=== PATIENT | female | born 1955 | race Two or more races ===

== ENCOUNTER 2024-03-25 19:01 | Emergency (ER) | payer OTHER ==
[~2024-03-25] VITALS: Ht 172.7 cm; Wt 56.8 kg
[2024-03-25 20:09] LABS: Basophils # (auto) 0.1 10 ^3/uL (0-0.2); Basophils % (auto) 0.7 % (0.0-2.0); Eosinophils # (auto) 0 10 ^3/uL (0-0.8); Eosinophils % (auto) 0.2 % (0.0-7.0); Hematocrit 45.5 % (36.0-46.0); Hemoglobin 14.9 g/dL (12.2-16.2); Lymphocytes # (auto) 1.3 10 ^3/uL (0.4-5.4); Mean Corpuscular Hemoglobin 28.4 pg (28.0-32.0); Mean Corpuscular Hgb Conc. 32.8 g/dL (32.0-36.0); Mean Corpuscular Volume 86.8 fL (80.0-100.0); Monocytes # (auto) 0.3 10 ^3/uL (0-1.3); Neutrophils # (auto) 9.4 10 ^3/uL (1.6-8.6); Neutrophils % (auto) 84.1 % (37.0-80.0); Nucleated Red Blood Cells % 0.1 %; Platelet Count (auto) 322 10^3/uL (140-450); Red Blood Cells 5.24 10^6/uL (4.0-5.20); Red Cell Distribution Width 14.7 % (11.8-14.3); White Blood Cell 11.2 10^3/uL (4.4-10.8)
[2024-03-25 20:09] LABS: Urine Bacteria None Seen /hpf (None Seen)
[2024-03-25 20:24] LABS: Urine Blood Negative /uL (Negative); Urine Clarity Clear (Clear); Urine Color Light-Yellow (Yellow); Urine Mucus FEW (None Seen); Urine Protein, UAD Negative (Negative); Urine Specific Gravity 1.016 (1.001-1.035); Urine Urobilinogen Normal (Negative); Urine WBC 19 /hpf (0 - 5)
[2024-03-25 20:34] LABS: Alanine Aminotransferase 16 U/L (7-40); Albumin 4.7 g/dL (3.2-4.8); Alkaline Phosphatase 131 U/L (46-116); Anion Gap 9 (5-15); Aspartate Aminotransferase 28 U/L (13-40); BUN/Creatinine Ratio 12.6 (10.0-20.0); Bilirubin, Total 0.5 mg/dL (0.2-1.0); Blood Urea Nitrogen 13 mg/dL (9-23); Calcium 10.2 mg/dL (8.7-10.4); Carbon Dioxide 23 mmol/L (20-31); Chloride 103 mmol/L (98-107); Glucose 146 mg/dL (74-106); Lipase 36 U/L (12-53); Potassium 4.2 mmol/L (3.5-5.1); Sodium 135 mmol/L (136-145); Total Protein 8.3 g/dL (5.7-8.2)
--- NOTE | 2024-03-25 21:09 | DVH ---
Exam: CT CT AB PEL WO CON-NO ORAL OR IV History: abd pain Comparison Study: None TECHNIQUE: Multidetector CT of the abdomen and pelvis was performed from lung bases to pubic symphysi s. Imaging was performed without IV contrast. Axial, coronal, and sagittal multiplanar reformats were obtained from the axial data set by the technologist. RADIATION DOSE: DLP 352.32 mGy.cm; CTDI vol 7.22 mGy. Findings: Limited evaluation given noncontrast technique. Lungs: Numerous scattered subcentimeter peripheral nodular consolidations. Heart: The visualized heart is unremarkable. No cardiomegaly or pericardial effusion. Moderate ryan ry atherosclerosis. Liver: Subcentimeter hypodense hepatic lesions which are too small to characterize. Gallbladder: Unremarkable. Spleen: Unremarkable Pancreas: Unremarkable Adrenals: Unremarkable Kidneys: Unremarkable GI tract: Postsurgical changes of the cecum. Foci of air in the non dependent portion of the small shad wel in the lower pelvis. Dilated loops of small bowel measuring up to 3.9 cm in diameter. : Unremarkable. Vasculature: Mild aortoiliac atherosclerosis. Lymphadenopathy: Absent Peritoneum: Trace pelvic ascites. Musculoskeletal: Moderate to severe multilevel degenerative changes of the thoracolumbar spine. Grade 1/2 anterolisthesis of L5 on S1 with severe degenerative disc disease. Bilateral total hip arthropla sties with associated beam hardening artifacts limit evaluation of the pelvis. Soft tissues: Unremarkable Impression: 1. Limited evaluation given noncontrast technique. 2. Small bowel obstruction without definite visualization of the transition point. 3. Pneumatosis versus pseudopneumatosis of the small bowel in the pelvis. Cannot exclude ischemic bow el. 4. Trace pelvic ascites, nonspecific. Critical Result: Bowel obstruction Findings discussed with Romain RAWLS, at 03/25/2024 09:07 PM, and acknowledged receipt and understanding of the findings.
[2024-03-25 22:50] VITALS: PULSE 61; RESP 25; O2SAT 95
--- NOTE | 2024-03-25 22:57 | DVH ---
Exam: CT CT AB PEL WITH IV CON ONLY History: abd pain Comparison Study: None available at time of dictation. Technique: Multidetector spiral CT of the abdomen and pelvis was performed from lung bases to pubic s ymphysis. Intravenous contrast was administered during this examination. Portal venous imaging was obtained. Axial, coronal and sagittal multiplanar reformats were performed by the technologist on a separate workstation. Radiation Dose : 1. Abdomen/Pelvis: CTDIvol 10 mGy, DLP 443 mGy*cm. Findings: Lung Bases: No acute or significant lung base finding. Normal heart size. No pleural or pericardial effusion. Liver: The liver is normal in size. No focal lesions. Normal hepatic vascular enhancement. Gallbladder and Biliary Tree: Unremarkable Spleen: Unremarkable Pancreas: The pancreas is normal in appearance without focal lesions or abnormal enhancement. Adrenal Glands: Unremarkable Kidneys: Kidneys demonstrate normal symmetric enhancement without focal lesions, calculi or hydroneph rosis. Multiple bilateral subcentimeter hypodensities. Bladder: Streaking artifact limits evaluation. Bowel: The stomach is grossly normal in appearance. Small bowel measuring up to 4.5 cm. Postsurgical changes of the cecum. Ascites: Absent Lymphadenopathy: No mesenteric, retroperitoneal or periportal lymphadenopathy. Abdominal Wall and Mesentery: Unremarkable. Vasculature: The visualized abdominal aorta is normal in size and caliber. Abdominal and pelvic vess els demonstrate normal enhancement. Pelvic Organs: Streaking artifact limits evaluation. Musculoskeletal: No aggressive focal bony lesions, acute fractures or dislocation. Status post bilate ral total hip arthroplasties. Severe degenerative changes and anterolisthesis involving the lumbar sp ine. Bone fusion with grade 2 anterolisthesis at L5-S1. IMPRESSION: Fluid-filled distended loops of small bowel without a focal transition point measuring up to 4.5 cm c oncerning for high-grade small bowel obstruction. Limited evaluation of the pelvic structures due to streaking artifact from bilateral total hip arthro plasties. Ancillary findings as described above.
[2024-03-25] MEDS: IOHEXOL 300 MG/ML 100ML BOTTLE IJ ONE (23:01)
[2024-03-25] MEDS: MORPHINE SULFATE 4 MG/ML SYR/VIAL IV ONE (23:08)
[2024-03-25] MEDS: ONDANSETRON HCL 4 MG/2 ML VIAL IV ONE (23:09)
--- NOTE | 2024-03-25 23:26 | ED.PDOC ---
GI ASSESSMENT HPI Comments 68-year-old female complaining of abdominal pain which started after eating a salad today. Patient states the pain is 10 10. Says she was not been able hold any food down due to nausea and vomiting. Does report a history of small-bowel obstruction. Patient also reports a history of perforated hernia which she had surgical repair on in January. Patient states her pain does feel similar to the last time she was small-bowel obstruction. 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 History Constitutional: denies: chills, diaphoresis, fatigue, fever, malaise, sweats, weakness, others EENTM: denies: blurred vision, double vision, ear bleeding, ear discharge, ear drainage, ear pain, ear ringing, eye pain, eye redness, hearing loss, mouth pain, mouth swelling, nasal discharge, nose bleeding, nose congestion, nose pain, photophobia, tearing, throat pain, throat swelling, voice changes, others Respiratory: denies: cough, hemoptysis, orthopnea, SOB at rest, shortness of breath, SOB with excertion, stridor, wheezing, others Cardiovascular: denies: chest pain, dizzy spells, diaphoresis, Dyspnea on exertion, edema, irregular heart beat, left arm pain, lightheadedness, palpitations, PND, syncope, others Gastrointestinal: reports: abdominal pain, nausea, vomiting; denies: abdomen distended, blood streaked bowels, constipated, diarrhea, dysphagia, difficulty swallowing, hematemesis, melena, poor appetite, poor fluid intake, rectal bleeding, rectal pain, others Genitourinary: denies: abnormal vagina bleeding, burning, dyspareunia, dysuria, flank pain, frequency, hematuria, incontinence, pain, , vagina discharge, urgency, others Neurological: denies: dizziness, fainting, headache, left sided numbness, left sided weakness, numbness, paresthesia, pre-existing deficit, right sided numbness, right sided weakness, seizure, speech problems, tingling, tremors, weakness, others Musculoskeletal: denies: back pain, gout, joint pain, joint swelling, muscle pain, muscle stiffness, neck pain, others Integumetry: denies: bruises, change in color, change in hair/nails, dryness, laceration, lesions, lumps, rash, wounds, others Allergic/Immunocompromised: denies: Difficulty Healing, Frequent Infections, Hives, Itching, others Hematologic/Lymphatic: denies: anemia, blood clots, easy bleeding, easy bruising, swollen glands, others Physical Exam General Appearance: Moderate Distress, Normal HEENT: Normal ENT Inspection, Pharynx Normal, TMs Normal Neck: Full Range of Motion, Non-Tender, Normal, Normal Inspection Respiratory: Chest Non-Tender, Lungs Clear, No Accessory Muscle Use, No Respiratory Distress, Normal Breath Sounds Cardiovascular: No Edema, No JVD, No Murmur, No Gallop, Normal Peripheral Pulses, Regular Rate/Rhythm Breast Exam: Deferred Gastrointestinal: Diffuse (Diffuse abdominal tenderness), No Organomegaly, Soft Genitalia: Deferred Pelvic: Deferred Rectal: Deferred Extremities: No calf tenderness, Normal capillary refill, Normal inspection, Normal range of motion, Non-tender, No pedal edema Musculoskeletal : Apperance: Normal Neurologic: Alert, 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 Was a procedure done?: No GI differential Dx Differential Diagnosis: Bowel Obstruction, Gastritis/PUD, Gastroenteritis, I nflammatory BD, Ischemic Bowel X-Ray, Labs, Meds, VS Vital Signs Date Time Temp Pulse Resp B/P (MAP) Pulse Ox O2 Delivery O2 Flow Rate FiO2 03/26/24 00:10 93 16 158/99 03/25/24 23:08 58 17 170/81 03/25/24 22:50 98.0 61 25 170/81 (110) 95 98.0 03/25/24 22:50 61 25 95 Nasal Cannula* 2 28 03/25/24 19:27 99.5 68 20 148/92 (110) 96 Lab Test 03/25/24 20:08 03/25/24 19:54 Range/Units Urine Color Light-yellow Yellow Urine Clarity Clear Clear Urine pH 6.0 5.0-9.0 Urine Specific [place] 1.016 1.001-1.035 Urine Protein Negative Negative Urine Ketones 1+ H Negative Urine Blood Negative Negative /uL Urine Nitrite Negative Negative Urine Bilirubin Negative Negative Urine Urobilinogen Normal Negative mg/dL Urine Leukocyte Esterase 2+ Negative /uL Urine RBC 2 0 - 4 /hpf Urine WBC 19 0 - 5 /hpf Urine Squamous Epithelial Cells None seen <5 /hpf Urine Bacteria None seen None Seen /hpf Urine Mucus Few None Seen Urine Glucose Normal Normal mg/dL White Blood Count 11.2 H 4.4-10.8 10^3/uL Red Blood Count 5.24 H 4.0-5.20 10^6/uL Hemoglobin 14.9 12.2-16.2 g/dL Hematocrit 45.5 36.0-46.0 % Mean Corpuscular Volume 86.8 80.0-100.0 fL Mean Corpuscular Hemoglobin 28.4 28.0-32.0 pg Mean Corpuscular Hemoglobin Concent 32.8 32.0-36.0 g/dL Red Cell Distribution Width 14.7 H 11.8-14.3 % Platelet Count 322 140-450 10^3/uL Mean Platelet Volume 7.6 6.9-10.8 fL Neutrophils (%) (Auto) 84.1 H 37.0-80.0 % Lymphocytes (%) (Auto) 12.0 10.0-50.0 % Monocytes (%) (Auto) 3.0 0.0-12.0 % Eosinophils (%) (Auto) 0.2 0.0-7.0 % Basophils (%) (Auto) 0.7 0.0-2.0 % Neutrophils # (Auto) 9.4 H 1.6-8.6 10 ^3/uL Lymphocytes # (Auto) 1.3 0.4-5.4 10 ^3/uL Monocytes # (Auto) 0.3 0-1.3 10 ^3/uL Eosinophils # (Auto) 0 0-0.8 10 ^3/uL Basophils # (Auto) 0.1 0-0.2 10 ^3/uL Nucleated Red Blood Cells 0.1 % Sodium Level 135 L 136-145 mmol/L Potassium Level 4.2 3.5-5.1 mmol/L Chloride Level 103 98-107 mmol/L Carbon Dioxide Level 23 20-31 mmol/L Anion Gap 9 5-15 Blood Urea Nitrogen 13 9-23 mg/dL Creatinine 1.03 H 0.550-1.02 mg/dL Glomerular Filtration Rate Calc 59 >90 mL/min BUN/Creatinine Ratio 12.6 10.0-20.0 Serum Glucose 146 H 74-106 mg/dL Calcium Level 10.2 8.7-10.4 mg/dL Total Bilirubin 0.5 0.2-1.0 mg/dL Aspartate Amino Transferase (AST) 28 13-40 U/L Alanine Aminotransferase (ALT) 16 7-40 U/L Alkaline Phosphatase 131 H 46-116 U/L Total Protein 8.3 H 5.7-8.2 g/dL Albumin 4.7 3.2-4.8 g/dL Lipase 36 12-53 U/L Current Medications Medications (Trade) Dose Ordered Sig/Elda Route Start Time Stop Time Status Last Admin Ondansetron HCl (Zofran) 4 mg ONCE ONCE IV 03/25/24 23:00 03/25/24 23:01 DC 03/25/24 23:09 Morphine Sulfate 4 mg ONCE ONCE IV 03/25/24 23:00 03/25/24 23:01 DC 03/25/24 23:08 X-Ray, Labs, Meds, VS Comment Pending call back from general surgeon on-call Dr. Julio NG tube on low intermittent suction placed Patient given morphine 4 mg and Zofran for pain control Patient be kept NPO No answer from general surgeon on-call Patient will be transferred to [facility] ER to ER. Spoke with Dr. Causey,, she will accept transfer. Patient will be transferred via ambulance ALS Time of 1ST Reevaluation: 23:25 Reevaluation 1ST: Unchanged Patient Education/Counseling: Diagnosis, Treatment Family Education/Counseling: Diagnosis, Treatment Departure 1 Departure Time of Disposition: 23:25 Impression: Primary Impression: Complete small bowel obstruction Disposition: ADMITTED INPATIENT Condition: Stable Critical Care Note Critical Care Time?: Yes (30 min-critical care time only) Critical care comment: Due to a high probability of clinically significant, life threatening deterior ation, the patient required my highest level of preparedness to intervene emergently and I personally spent this critical care time directly and personally managing the patient. This critical care time included obtaining a history; examining the patient; pulse oximetry; ordering and review of studies; arranging urgent treatment with development of a management plan; evaluation of patient's response to treatment; frequent reassessment; and, discussions with other providers. This critical care time was performed to assess and manage the high probability of imminent, life-threatening deterioration that could result in multi-organ failure. It was exclusive of separately billable procedures and treating other patients and teaching time. Stability Stability form required: No Heart Score Heart Score: Heart Score Response (Comments) Value History N/A 0 EKG N/A 0 Age N/A 0 Risk Factors N/A 0 Troponin N/A 0 Total 0 PA[facility] Mar 25, 2024 23:26
--- NOTE | 2024-03-26 00:59 | DVH ---
CHEST RADIOGRAPH Indication:NG placement Technique: Single frontal view of the chest was obtained Comparison: None Findings / IMPRESSION: Enteric tube appears in proper position. Low lung volumes with bronchovascular crowding. Bibasilar fernandez bsegmental atelectasis.
[2024-03-26] MEDS: hydrALAZINE HCL 20 MG/ML VL IV ONE (02:01)
[2024-03-26 02:26] VITALS: BP 112/74; PULSE 81; RESP 22; TEMP 98.1; O2SAT 96
== END 2024-03-26 02:50 | disposition short-term general hospital (02) ==
LOC: ER 19:05
DX: K56.691 Other complete intestinal obstruction (principal)
CPT/HCPCS: 36415; 71045; 74176; 74177; 80053; 81001; 83690; 85025; 96374; 96375; 99285; J0360; Q9967; J2405